=== PATIENT | male | born 1950 | race Caucasian/White ===

== ENCOUNTER 2016-06-06 08:37 | Outpatient (CLI) ==
--- NOTE | 2016-06-09 09:39 | HOLTER ---
PATIENT INFORMATION AND COMMENTS Indications: ATRIAL FIBRILLATION __ Patient Medications: NO MEDICATION __ Pre-procedure Summary: Protocol: Standard Heart Rate Started: 06/06/16852 Minimum: 46 BPM Weight: 200 LBS Ended: 06/07/16852 Maximum: 97 BPM Height: 69" Duration: 24 HOURS Average: 63 _ INTERPRETATIONS/OBSERVATIONS: 1. BASIC RHYTHM: SINUS, RATE 46 TO 98/BPM, AVERAGE 63/BPM 2. PAC'S NOTED--LESS THAN 1% OF BEATS SCANNED --RARE PVC'S 3. NO ATRIAL FIBRILLATION NOTED, NO TACHYARRHYTHMIAS 4. NO ST-T WAVE CHANGES FROM BASELINE 5. ACTIVITY LOG NOT MAINTAINED MTDD
== END 2016-06-06 08:38 | disposition home or self-care (01) ==
LOC: CAR 08:37
PROVIDERS: ATTEND Family Medicine
DX: I48.91 Unspecified atrial fibrillation (principal)

== ENCOUNTER 2016-09-19 08:27 | Outpatient (CLI) | payer OTHER ==
[2016-09-19 09:22] LABS: CHOL/HDL RATIO 4.2 (4.5-6.4)
== END 2016-09-19 08:28 | disposition home or self-care (01) ==
LOC: LAB 08:27
PROVIDERS: ATTEND Physician Assistant Medical
DX: E78.5 Hyperlipidemia, unspecified (principal)
CPT/HCPCS: 36415; 80061

== ENCOUNTER 2017-01-13 07:00 | Outpatient (CLI) ==
[2017-01-13 07:19] LABS: BASOPHILS # (AUTO) 0.1 K/uL (0-0.2); BASOPHILS % (AUTO) 0.6 % (0.0-3.0); EOSINOPHILS # (AUTO) 0.3 K/ul (0.0-0.7); EOSINOPHILS % (AUTO) 3.5 % (0.0-7.0); HEMATOCRIT 39.1 % (42.0-52.0); HEMOGLOBIN 13.2 g/dl (14.0-18.0); IMMATURE GRANULOCYTE % (AUTO) 0.5 % (0.0-5.0); LYMPHOCYTES # (AUTO) 1.9 K/uL (0.60-3.4); LYMPHOCYTES % (AUTO) 23.4 (10.0-50.0); MEAN CORPUSCULAR HEMOGLOBIN 28.5 pg (27.0-31.0); MEAN CORPUSCULAR HGB CONC 33.8 (31.8-35.4); MEAN CORPUSCULAR VOLUME 84.4 fl (80.0-94.0); MONOCYTES # (AUTO) 0.7 K/uL (0.4-2.0); MONOCYTES % (AUTO) 8.3 (0-10); NEUTROPHILS # (AUTO) 5.1 K/ul (2.0-6.9); NEUTROPHILS % (AUTO) 63.7; PLATELET COUNT 232 10^3/uL (140-440); RED BLOOD COUNT 4.63 10^6/ul (4.70-6.10); WHITE BLOOD COUNT 8.04 K/ul (4.2-10.2)
[2017-01-13 07:39] LABS: ANION GAP 11.6; BUN/CREATININE RATIO 14.4; CREATININE 1.18 mg/dL (0.60-1.10); POTASSIUM 4.6 mmol/L (3.5-5.1)
== END 2017-01-13 07:01 | disposition home or self-care (01) ==
LOC: LAB 07:00
PROVIDERS: ATTEND Family Medicine
DX: E11.8 Type 2 diabetes mellitus with unspecified complications (principal)
CPT/HCPCS: 36415; 80048; 83036; 85025

== ENCOUNTER 2017-07-08 06:29 | Outpatient (CLI) | payer OTHER | END 2017-07-08 06:30 | disposition home or self-care (01) | LOC: LAB 06:29 | PROVIDERS: ATTEND Family Medicine | DX: R97.20 Elevated prostate specific antigen [PSA] (principal); K76.0 Fatty (change of) liver, not elsewhere classified; E78.5 Hyperlipidemia, unspecified; I10 Essential (primary) hypertension; E11.8 Type 2 diabetes mellitus with unspecified complications; N40.0 Benign prostatic hyperplasia without lower urinary tract symptoms; E55.9 Vitamin D deficiency, unspecified; Z00.00 Encounter for general adult medical examination without abnormal findings; Z79.01 Long term (current) use of anticoagulants; Z12.5 Encounter for screening for malignant neoplasm of prostate | CPT/HCPCS: 36415; 80061; 82306; 84439; 84443 ==

== ENCOUNTER 2017-11-12 13:47 | Outpatient (CLI) | payer OTHER ==
--- NOTE | 2017-11-12 16:15 | DI ---
Exam: Three views of the cervical spine. Comparison: None available. Reason for exam: Pain. FINDINGS: No acute fracture in the cervical spine. There is multilevel degenerative disease with os teophyte formation. There is straightening of the cervical lordotic curve. The dens appears intact on the open-mouth odontoid view. Impression: No acute fracture or listhesis in the cervical spine. Straightening of the cervical tay dotic curve may be due to muscular splinting.
== END 2017-11-12 13:48 | disposition home or self-care (01) ==
LOC: RAD 13:47
PROVIDERS: ATTEND Family Medicine
DX: M54.2 Cervicalgia (principal)

== ENCOUNTER 2017-11-18 12:21 | Outpatient (CLI) ==
--- NOTE | 2017-11-18 21:29 | MRI ---
EXAM: Cervical spine MRI without contrast. HISTORY: Neck pain. COMPARISON: Cervical spine radiographs of 04/2018. TECHNIQUE: Multiplanar, multisequence MR images were acquired of the cervical spine without contrast . FINDINGS: The craniocervical junction is unremarkable. The cervical cord has normal signal intensit y. There is minor mid cervical dextroscoliosis and straightening of the usual cervical lordosis. Th e cervical vertebra are normal in height and intrinsic bone marrow signal. Canal diameter is develop mentally normal. There is ventral spondylosis at C3-4 and C4-5. There are no paravertebral masses. C2-3: The intervertebral disc is normal. Mild to moderate left hypertrophic facet arthropathy is pre sent. There is no central canal stenosis or significant foraminal stenosis. C3-4: There is a posterior disc bulge that mildly indents the right cervical cord. Moderate left hy pertrophic facet arthropathy is present. There is minor central canal stenosis and mild right and mo derately severe left neural foraminal stenosis. AP diameter of the thecal sac is 9.5 mm. C4-5: There is a minor disc bulge and right uncovertebral hypertrophy. Mild left facet arthropathy is present and there is moderate right and mild to moderate left neural foraminal stenosis. There is no central canal stenosis. C5-6: There is a mild diffuse disc bulge with posterior endplate osteophytes and a small central dis c protrusion that mildly indents the right cord. Right greater than left uncovertebral hypertrophy a nd mild left facet arthropathy is present. There is ligamentum flavum hypertrophy and these findings cause mild to moderate right and moderate left neural foraminal stenosis. There is no central canal stenosis. C6-7: There is a minor disc bulge and small right paracentral disc protrusion that effaces the right anterior subarachnoid space. Right uncovertebral hypertrophy is present and there is mild right gre ater than left neural foraminal stenosis and minor central canal stenosis. AP diameter of the thecal sac is 9.5 mm. C7-T1: The intervertebral disc is normal. IMPRESSION: 1. Mild to moderate cervical degenerative spondylosis with minor C3-4 and C6-7 central canal stenosi s. 2. Small disc herniations C5-6 and C6-7. 3. Moderately severe left C3-4, moderate right and mild to moderate left C4-5 and mild-moderate righ t and moderate left C5-6 neural foraminal stenosis.
== END 2017-11-18 12:22 | disposition home or self-care (01) ==
LOC: RAD 12:21
PROVIDERS: ATTEND Family Medicine
DX: M54.2 Cervicalgia (principal)

== ENCOUNTER 2018-03-16 11:15 | Outpatient (CLI) ==
--- NOTE | 2018-03-16 16:01 | CT ---
EXAM: CT of the chest with and without contrast. History: Chest pain and short of breath Comparison: None available. Technique: Multiplanar CT images through the thorax were obtained with and without the administratio n of IV contrast Findings: Heart is mildly enlarged. Trace pericardial fluid. Coronary calcifications. No thoracic aortic aneurysm. No axillary lymphadenopathy. No mediastinal lymphadenopathy. 1.1 cm right hilar lymph node. No consolidation. No pleural fluid and no pneumothorax. No suspicious lung masses or lung nodules. Within the visualized upper abdomen, status post cholecystectomy. 1.8 cm benign left adrenal adenoma . Colonic diverticulosis. The liver is probably fatty. No acute osseous abnormalities. Impression: 1. No acute intrathoracic process. 2. Mild cardiomegaly. 3. Coronary artery disease. 4. 1.1 cm right hilar lymph node is indeterminate. Recommend follow-up chest CT in 6 months to docu ment stability. 5. Benign left adrenal adenoma. 6. Possible fatty liver. 7. Colonic diverticulosis
== END 2018-03-16 11:16 | disposition home or self-care (01) ==
LOC: RAD 11:15
PROVIDERS: ATTEND Family Medicine
DX: R06.02 Shortness of breath (principal); Z77.090 Contact with and (suspected) exposure to asbestos
CPT/HCPCS: 36415; 82565

== ENCOUNTER 2018-06-11 08:52 | Emergency (ER) ==
[2018-06-11 09:07] VITALS: BP 141/76; TEMP 97.7; BMI 34.0
--- NOTE | 2018-06-11 09:32 | DI ---
EXAM: RIGHT ELBOW HISTORY: Elbow injury, pain FINDINGS: Right elbow three views. There is no fracture, joint dislocation or joint effusion identi fied. Minimal bony spurring of the posterior olecranon process is present. Soft tissues are otherwi se unremarkable. IMPRESSION: 1. No fracture or dislocation.
--- NOTE | 2018-06-11 09:48 | CT ---
EXAM: CT BRAIN HISTORY: Trauma to head, patient on blood thinners TECHNIQUE: CT brain without intravenous contrast. 5-mm axial sections with Reformations. COMPARISON: None FINDINGS: Brain is unremarkable without evidence of hemorrhage or large vessel distribution recent ischemic in farction. There is no suggestion of acute hydrocephalus or subdural fluid collection. No mass or ma ss effect. Cranium has no acute finding. Mastoid processes are aerated. The visualized paranasal sinuses are clear. IMPRESSION: No acute intracranial process. No skull fracture.
--- NOTE | 2018-06-11 09:49 | ED.PDOC ---
General ED Provider: Dr. LUIS CHO Chief Complaint: Fall Stated Complaint: FALL HEAD INJURY Time Seen by Physician: 09:00 Mode of Arrival: Wheelchair Information Source: Patient Exam Limitations: No limitations Primary Care Provider: DES URIBE Nursing and Triage Documentation Reviewed and Agree: Yes Does patient meet sepsis criteria?: No System Inflammatory Response Syndrome: Not Applicable Sepsis Protocol: For patient's 13 years and over: Temp is 96.8 and below OR 101 and greater Pulse >90 BPM Resp >20/minute Acutely Altered Mental Status Are patient's symptoms suggestive of a new infection, such as: -Pneumonia -Skin, Soft Tissue -Endocarditis -UTI -Bone, Joint Infection -Implantable Device -Acute Abdominal Infection -Wound Infection -Meningitis -Blood Stream Catheter Infection -Unknown Trauma/Injury Complaint Exam - Trauma Complaint/Exam Location of Pain or Injury: Reports: Head, Neck, RUE (ELBOW), Other (NO L.O.C.) . Denies: Face, LUE, Chest, Abdomen, Back, RLE, LLE Mechanism of Injury: Reports: Fall Onset/Duration: 1 HR AGO Symptoms Are: Resolved Timing of Treatment: Immediate Initial Severity: Moderate Current Severity: Mild Character: Reports: Aching Aggravating: Reports: None Alleviating: Reports: None Associated Signs and Symptoms: Denies: LOC, Confusion, Memory loss, Lethargy, Vomiting, Bleeding, Bruising, Swelling, Extremity disuse, Painful respiration, Hoarseness, Dysphagia, Hemoptysis, Significant blood loss Related History: Reports: Similar episode Penetrating Injury Risk Factors: Reports: None Related Surgical History: Reports: None Nexus Low Risk Criteria: No post-midline CS tender, No evidence of intoxicat., No Altered LOC, No focal neuro deficit, No distracting injuries Immobilization Removed Post Exam: No Review of Systems - Review Of Systems Constitutional: Reports: No symptoms Eyes: Reports: No symptoms Ears, Nose, Mouth, Throat: Reports: No symptoms Respiratory: Reports: No symptoms Cardiac: Reports: No symptoms GI: Reports: No symptoms : Reports: No symptoms Musculoskeletal: Reports: No symptoms Skin: Reports: No symptoms Neurological: Reports: Headache (HEAD INJURY NO L.O.C.) Endocrine: Reports: No symptoms Hematologic/Lymphatic: Reports: No symptoms All Other Systems: Reviewed and Negative Past Medical History - Past Medical History Previously Healthy: Yes Endocrine: Reports: None Cardiovascular: Reports: A-Fib, Other (CAROTID DISEASE LEFT SIDE) Respiratory: Reports: None Hematological: Reports: None Gastrointestinal: Reports: None Genitourinary: Reports: None Neuro/Psych: Reports: None Musculoskeletal: Reports: None Cancer: Reports: None - Surgical History General Surgical History: Reports: None - Family History Family History: Reports: None - Social History Smoking Status: Never smoker Hx Substance Use: No Alcohol Screening: None Physical Exam - Physical Exam Appearance: Well-appearing, No pain distress, Well-nourished Eyes: GAYLE, EOMI, Conjunctiva clear ENT: Ears normal, Nose normal, Oropharynx normal Respiratory: Airway patent, Breath sounds clear, Breath sounds equal, Respirations nonlabored Cardiovascular: RRR, Pulses normal, No rub, No murmur GI/: Soft, Nontender, No masses, Bowel sounds normal, No Organomegaly Musculoskeletal: Normal strength, ROM intact, No edema, No calf tenderness Skin: Warm, Dry, Normal color Neurological: Sensation intact, Motor intact, Reflexes intact, Cranial nerves intact, Alert, Oriented Psychiatric: Affect appropriate, Mood appropriate Re-Evaluation - Re-Evaluation Time of Re-Evaluation: 09:50 Status: Improved Vital Signs Stable: Yes Pain Level: 0 Appearance: NAD Lungs: Clear Skin: Warm and Dry Neuro: Alert and Oriented X3 CV: RRR Additional Comments: 0 Critical Care Note - Critical Care Note Total Time (mins): 60 Course - Course Hematology/Chemistry: 06/11/18 09:35 Orders, Labs, Meds: Lab Review 06/11/18 09:35 WBC 8.60 RBC 4.61 L Hgb 10.8 L Hct 34.9 L MCV 75.7 L MCH 23.4 L MCHC 30.9 L RDW Coeff of Wes 14.3 Plt Count 259 Immature Gran % (Auto) 0.3 Neut % (Auto) 66.9 Lymph % (Auto) 21.2 Brewster % (Auto) 7.7 Eos % (Auto) 3.4 Baso % (Auto) 0.5 Immature Gran # (Auto) 0.0 Neut # (Auto) 5.8 Lymph # (Auto) 1.8 Brewster # (Auto) 0.7 Eos # (Auto) 0.3 Baso # (Auto) 0.0 Orders Category Date Time Status CBC W/ AUTO DIFF Stat LAB 06/11/18 09:35 Completed COMPREHENSIVE METABOLIC PANEL Stat LAB 06/11/18 09:35 Received PARTIAL THROMBOPLASTIN TIME Stat LAB 06/11/18 09:35 Received PT WITH INR Stat LAB 06/11/18 09:[address] CERVICAL SPINE W/O CONTRAST Stat RADS 06/11/18 08:[address] HEAD W/O CONTRAST Stat RADS 06/11/18 08:54 Taken ELBOW, RIGHT MIN 3 VIEWS Stat RADS 06/11/18 09:03 Completed Vital Signs: Temp Pulse Resp BP Pulse Ox 06/11/18 09:01 97.7 F 70 16 141/76 H 99 Departure - Departure Time of Disposition: 10:00 Disposition: HOME SELF-CARE Discharge Problem: Head injury Qualifiers: Encounter type: initial encounter Qualified Code(s): S09.90XA - Unspecified injury of head, initial encounter Instructions: Head Injury (ED) Condition: Good Pt referred to PMD for follow-up: Yes IPMP verified?: No Allergies/Adverse Reactions: Allergies No Known Allergies Allergy (Unverified 09/20/14 12:03) Home Medications: Ambulatory Orders Atorvastatin Calcium [Lipitor] 20 mg PO DAILY 06/11/18 Cholecalciferol (Vitamin D3) [Vitamin D] 2,000 unit PO DAILY 06/11/18 Lisinopril 10 mg PO DAILY 06/11/18 Loratadine [Claritin] 10 mg PO DAILY 06/11/18 Metoprolol Tartrate [Lopressor] 12.5 mg PO BID 06/11/18 Omeprazole [Prilosec] 20 mg PO QDAC 06/11/18 Rivaroxaban [Xarelto] 20 mg PO DAILY 06/11/18 Tamsulosin HCl [Flomax] 0.4 mg PO DAILY 06/11/18 Disposition Discussed With: Patient, Family
[2018-06-11] MEDS ORDERED: NORCO 10-325 PO STA (09:52)
--- NOTE | 2018-06-11 09:55 | CT ---
EXAM: CT cervical spine. HISTORY: Cervical spine injury, pain. TECHNIQUE: CT cervical spine without contrast. Detailed axial sections. Coronal and sagittal re-fo rmations. COMPARISON: No comparison CT FINDINGS: No acute fracture or subluxation is seen. Vertebral body height is maintained. Facet joints are cov ered. Degenerative disc and facet disease leads to multilevel central canal and neural foraminal aung nosis most apparent at C5/C6 where there is mild to moderate central canal stenosis and bilateral massimo ral foraminal narrowing greater on the right. There is no paraspinal hematoma. IMPRESSION: 1. No fracture or subluxation. 2. Degenerative changes of the spine.
== END 2018-06-11 10:20 | disposition home or self-care (01) ==
LOC: ED 08:52
DX: S09.90XA Unspecified injury of head, initial encounter (principal); M54.2 Cervicalgia; M25.521 Pain in right elbow; D64.9 Anemia, unspecified; R73.9 Hyperglycemia, unspecified; W19.XXXA Unspecified fall, initial encounter; Z79.899 Other long term (current) drug therapy
CPT/HCPCS: 36415; 80053; 85025; 85610; 85730; 99283

== ENCOUNTER 2018-09-07 09:22 | Outpatient (CLI) | payer OTHER | END 2018-09-07 09:23 | disposition home or self-care (01) | LOC: LAB 09:22 | PROVIDERS: ATTEND Family Medicine | DX: N40.0 Benign prostatic hyperplasia without lower urinary tract symptoms (principal); R97.20 Elevated prostate specific antigen [PSA] | CPT/HCPCS: 36415 ==